=== PATIENT | female | born 1960 ===

== ENCOUNTER 2025-04-28 14:11 | Outpatient (CLI) | payer OTHER ==
[2025-04-28 15:59] LABS: CREATININE SERUM 0.58 mg/dL (0.55-1.02); GFR 104.66
== END 2025-04-28 15:14 | disposition home or self-care (01) ==
LOC: LAB 14:11
PROVIDERS: ATTEND Radiology Diagnostic Radiology
DX: R10.9 Unspecified abdominal pain (principal)

== ENCOUNTER → 2025-05-04 | Outpatient (CLI) | payer OTHER | END | disposition home or self-care (01) | LOC: TOM 09:39 | PROVIDERS: ATTEND Specialist | DX: R10.9 Unspecified abdominal pain (principal) ==